=== PATIENT | male | born 1945 | race Caucasian/White ===

== ENCOUNTER 2022-12-17 05:41 | Inpatient (IN) ==
--- NOTE | 2022-12-13 11:56 | Anesthesiology Consultation ---
Date of Service December 13, 2022 Assessment & Plan (1) Encounter for pre-operative examination: - cardiology clearance 12/11/22: "...low to moderate risk..." - Per lead atg developer on 12/13/2022: No known infectious disease contacts, current infectious disease symptoms in past 10 days or COVID positive test result in the past 90 days. Chart Review Chart Review: Acceptable Risk for Surgery and Patient NOT seen in Pre Admission Testing History Surgery Operation Date: 12/17/22 08:00 Proposed Procedures p Right Femoral Popliteal Insitu Bypass - Bjorn Alamo MD s Right Foot Debridement - Bjorn Alamo MD Height/Weight Height: 5 ft 11 in Weight: 83.915 kg Allergies Allergy/AdvReac Type Severity Reaction Status Date / Time No Known Allergies Allergy Verified 12/13/22 09:04 Medications Home Medications Medication Instructions Recorded Confirmed Last Taken amlodipine 10 mg tablet 10 mg PO QAM 12/13/22 12/13/22 Unknown aspirin 81 mg tablet,delayed 81 mg PO QAM 12/13/22 12/13/22 Unknown release buspirone 10 mg tablet 10 mg PO UD 12/13/22 12/13/22 Unknown clobetasol 0.025 % topical cream 1 applic topical UD PRN ud 12/13/22 12/13/22 Unknown clopidogrel 75 mg tablet (Plavix) 75 mg PO HS 12/13/22 12/13/22 Unknown evolocumab 140 mg/mL subcutaneous 140 mg subcut UD 12/13/22 12/13/22 Unknown pen injector (Repatha Karenick) isosorbide mononitrate 30 mg 30 mg PO QAM 12/13/22 12/13/22 Unknown tablet,extended release 24 hr pantoprazole 40 mg tablet,delayed 40 mg PO QAM 12/13/22 12/13/22 Unknown release pravastatin 40 mg tablet 40 mg PO HS 12/13/22 12/13/22 Unknown Past Medical History Medical History (Updated 12/13/22 @ 11:59 by Shawnee Campbell PA-C) Anxiety CAD (coronary artery disease) s/p 1 stent 2020 Carotid artery stenosis s/p left carotid endarterectomy GERD (gastroesophageal reflux disease) History of COVID-19 05/2022>resolved History of skin cancer Hx of gastric ulcer Hyperlipidemia Hypertension Osteoarthritis PVD (peripheral vascular disease) Past Family History Family History Other No family history of adverse response to anesthesia Past Surgical History Surgical History H/O arthroscopy of right knee H/O carotid endarterectomy left H/O vascular surgery pt states has 3 stents in rt/left legs will bring all stent cards to surgery History of cataract surgery rt/left History of colonoscopy History of esophagogastroduodenoscopy (EGD) History of heart artery stent 2020>1 stent placed *GABRIELLE Layne (followed by Dr. Gary) History of tooth extraction Social History Smoking Status: Current every day smoker tobacco type: cigarettes Smoking cigarettes per day: 20 cig daily>advised Do You Dip or Chew Tobacco: No Hx Alcohol Use: No substance use type: does not use Testing Laboratory Results 12/12/2022 WBC: 9.3 H/H: 12.9/38 PLATELETS: 246 11/23/22 SODIUM: 142 POTASSIUM: 4.2 CHLORIDE: 111 CO2: 26 BUN: 32 CREATININE: 1.6 GLUCOSE: 137 PT: 9.5 PTT: 26 INR: 1 Electrocardiogram Date: 07/28/22 NSR, rate 66 bpm RBBB Septal infarct, age undetermined Cardiac Catheterization Date: 04/24/21 Left main: nonexistent, this is a dual ostia system, of the LAD and LCx have different takeoff LAD: luminal irregularities LCx: 99% stenosis, 99% ostial to proximal stenosis 99% calcific stenosis in the ostial to proximal segment of the vessel RCA: not selectively engaged or injected Percutaneous intervention of the left circumflex and the OM1
[2022-12-17] MEDS ORDERED: ceFAZolin 2000MG 2,000 MG/15 ML SYR IV SCH (06:00)
[2022-12-17] MEDS ORDERED: LACTATED RINGER'S 1,000 ML IV SCH ×2 (06:00→11:39)
[2022-12-17] MEDS ORDERED: ROCURONIUM BROMIDE 10 MG/ML 5 ML VIAL IV ONE ×4 (07:06→10:40)
[2022-12-17] MEDS ORDERED: fentaNYL citrate PF 100 MCG/2 ML VIAL ONE ×2 (07:06→10:33)
[2022-12-17] MEDS ORDERED: LIDOCAINE 2% 2 ML VIAL/AMP(20MG/ML) INFIL ONE (07:06)
[2022-12-17] MEDS ORDERED: PROPOFOL IV EMULSION 10 MG/ML 20 ML VIAL IV ONE (07:06)
[2022-12-17] MEDS ORDERED: HEPARIN (PORCINE) 1000 UNIT/ML 10 ML (CATH LAB USE ONLY) ONE (07:22)
[2022-12-17] MEDS ORDERED: PAPAVERINE HCL INJ 30 MG/ML 2 ML VIAL ONE (07:22)
[2022-12-17] MEDS ORDERED: ceFAZolin 330 MG/ML 1 GM VIAL ONE (07:23)
[2022-12-17] MEDS ORDERED: GELATIN SPONGE SZ 100 ONE (07:23)
[2022-12-17] MEDS ORDERED: THROMBIN 5000 UNITS KIT ONE (07:23)
[2022-12-17] MEDS ORDERED: THROMBIN FOR SOLN 20000 UNIT KIT ONE (07:39)
--- NOTE | 2022-12-17 07:45 | History & Physical Report ---
Date of Service December 17, 2022 History of Present Illness Primary Care Provider: Fredi Jimenez Capp, Reason for Consultation Right SFA occlusion with foot ulceration History of Present Illness I had the pleasure of seeing Aida today for evaluation of his right lower extremity. As you know he is a 77-year-old gentleman who has had coronary stents bilateral leg stents done in the past. He is now developed an ulceration on the lateral aspect of his foot over the fifth metatarsal head laterally which is healing nicely and at this point almost completely healed. He also has a punctate ulceration on the heel causing him a significant amount of discomfort. He denies any claudication in the right lower extremity at this point. Review of Systems 10 systems were reviewed. Positive findings are occasional syncopal episodes intolerance to heat and cold irregular heartbeat shortness of breath heartburn and change in a mole. Rest of the positive findings are per the HPI. Physical Exam Vitals & Measurements Input and Output - Last 24 hours (Last 8 hours) No I/O Data Found: On exam he is awake alert and oriented x3. His blood pressure is 158/72 on the left 162/78 on the right. His lungs are clear. His heart had a regular rate and rhythm. Abdominal exam is benign. There is no abnormal dilatation of the aorta. His femorals are +2 bilaterally. He does have palpable pulses in the left foot slightly decreased. There is no pulses palpated in the right foot. Capillary refill on the left is normal in the right is markedly decreased. The right lower extremity has a almost healed ulceration over the lateral aspect of the fifth metatarsal head. There also is a punctate lesion on the heel in the right foot with a small cavity underlying the skin. Neurologic exam grossly intact. Diagnostic Results Vein mapping was performed today which showed a usable saphenous vein of the right lower extremity. Assessment/Plan 1. 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 We will also debride the heel being that he will be under anesthesia for the procedure. He understands the risks options and benefits and agrees to go ahead with this procedure. We will keep you informed as to his re sults. Thank you very much for letting us participate in the care of this patient. sincerely, John Alamo MD Problem List/Past Medical History Ongoing (atherosclerosis) Medications Home amLODIPine(amLODIPine 10 mg oral tablet), 10 mg= 1 tab, PO, Daily aspirin(aspirin 81 mg oral delayed release tablet), 81 mg= 1 tab, PO, Daily busPIRone(busPIRone 10 mg oral tablet), 10 mg= 1 tab, PO, tid clopidogrel(clopidogrel 75 mg oral tablet), 75 mg= 1 tab, PO, Daily evolocumab(Repatha SureClick 140 mg/mL subcutaneous solution), 140 mg, subQ, [id number] isosorbide mononitrate(isosorbide mononitrate 30 mg oral tablet, extended release) metoprolol(Metoprolol Succinate ER 25 mg oral tablet, extended release), 25 mg= 1 tab, PO, Daily pantoprazole(pantoprazole 40 mg oral delayed release tablet), 40 mg= 1 tab, PO, Daily pravastatin(pravastatin 40 mg oral tablet), 40 mg= 1 tab, PO, qhs Allergies NKA Signature Line Electronic Signature on File Bjorn Alamo MD Author Signature Dt/Tm: 12/10/2022 03:40 PM Manager Organizational Chu Richardson [facility] [place], [address] [place], [place] [address] Result Type: .Outpt Ltr Date of Service: December 10, 2022 15:32 EDT Authorization Status: Final Subject: Consult Note Author or Import Date: MD Alamo Eugene J on December 10, 2022 15:40 EDT Verified By: MD Alamo Eugene J on December 10, 2022 15:40 EDT Encounter info: [id number], [facility], Clinic, 12/10/2022 - 12/10/2022 Allergies Allergy/AdvReac Type Severity Reaction Status Date / Time No Known Allergies Allergy Verified 12/17/22 06:14 Home Medications Medication Instructions Recorded Confirmed Type amlodipine 10 mg tablet 10 mg PO QAM 12/13/22 12/17/22 History aspirin 81 mg tablet,delayed 81 mg PO QAM 12/13/22 12/17/22 History release buspirone 10 mg tablet 10 mg PO UD 12/13/22 12/17/22 History clobetasol 0.025 % topical cream 1 applic topical UD PRN ud 12/13/22 12/17/22 History clopidogrel 75 mg tablet (Plavix) 75 mg PO HS 12/13/22 12/17/22 History evolocumab 140 mg/mL subcutaneous 140 mg subcut UD 12/13/22 12/17/22 History pen injector (Sarahi Welsh) isosorbide mononitrate 30 mg 30 mg PO QAM 12/13/22 12/17/22 History tablet,extended release 24 hr pantoprazole 40 mg tablet,delayed 40 mg PO QAM 12/13/22 12/17/22 History release pravastatin 40 mg tablet 40 mg PO HS 12/13/22 12/17/22 History metoprolol succinate 25 mg 25 mg PO DAILY 12/17/22 12/17/22 History tablet,extended release 24 hr (Toprol XL) Past Med/Surg History Medical History Anxiety CAD (coronary artery disease) s/p 1 stent 2020 Carotid artery stenosis s/p left carotid endarterectomy GERD (gastroesophageal reflux disease) History of COVID-19 05/2022>resolved History of skin cancer Hx of gastric ulcer Hyperlipidemia Hypertension Osteoarthritis PVD (peripheral vascular disease) Surgical History H/O arthroscopy of right knee H/O carotid endarterectomy left H/O vascular surgery pt states has 3 stents in rt/left legs will bring all stent cards to surgery History of cataract surgery rt/left History of colonoscopy History of esophagogastroduodenoscopy (EGD) History of heart artery stent 2020>1 stent placed * Moro (followed by Dr. Gary) History of tooth extraction Family History Other No family history of adverse response to anesthesia Social History Smoking Status: Current every day smoker Cigarettes Per Day: 20 cig daily>advised; Second Hand Exposure: No; Do You Dip or Chew Tobacco: No; Hx Alcohol Use: No Preferred Language: Norwegian Alterations Manager Required: No Beliefs That Will Affect Care: None Current Living Situation: Spouse Feels Safe at Home: Yes Safety Concerns: Feels Safe At This Time Assistive Devices: Crutches, Denture - Upper and Denture - Lower Results & Data Vital Signs (Past 12 Hours) Vital Signs Temp Pulse Resp BP Pulse Ox O2 Del Method 12/17/22 06:21 36.6 C 81 20 141/69 H 98 Room Air
--- NOTE | 2022-12-17 07:45 | History & Physical Bridge Note ---
Date of Service December 17, 2022 History & Physical Bridge Note I have examined the patient, reviewed the History & Physical and in the interval since the performance of the History & Physical I have noted the following changes of clinical significance: no changes noted
[2022-12-17] MEDS ORDERED: fentaNYL citrate PF 100 MCG/2 ML VIAL IV PRN (07:53)
[2022-12-17] MEDS ORDERED: PROMETHAZINE HCL 12.5 MG in SODIUM CHLORIDE 0.9% 50 ML IV PRN (07:53)
[2022-12-17] MEDS ORDERED: ATROPINE SULFATE 0.1 MG/ML 10ML SYR IV PRN (07:53)
[2022-12-17] MEDS ORDERED: ONDANSETRON INJ 2 MG/ML 2 ML VIAL IV PRN ×2 (07:53→11:39)
[2022-12-17] MEDS ORDERED: ePHEDrine sulfate 50 MG/ML AMP IV PRN (07:53)
[2022-12-17] MEDS ORDERED: HYDROmorphone INJ 2 MG/ML SYR/VIAL IV PRN (07:53)
[2022-12-17] MEDS ORDERED: DEXAMETHASONE SOD INJ 4 MG/ML VIAL ONE (09:33)
[2022-12-17] MEDS ORDERED: ePHEDrine sulfate 50 MG/ML AMP ONE (09:33)
[2022-12-17] MEDS ORDERED: ONDANSETRON INJ 2 MG/ML 2 ML VIAL ONE (09:33)
[2022-12-17] MEDS ORDERED: HEPARIN SOD (PORCINE) 1000 UNIT/ML ONE (09:33)
--- NOTE | 2022-12-17 10:35 | Post Operative Brief Note ---
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
[2022-12-17] MEDS ORDERED: GLYCOPYRROLATE 0.2 MG/ML VIAL ONE (10:40)
[2022-12-17] MEDS ORDERED: NEOSTIGMINE METHYLSULFATE 1 MG/ML 10ML VIAL ONE (10:40)
--- NOTE | 2022-12-17 10:54 | Operative Report ---
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 Post-Op Diagnosis: Atherosclerosis of [place] arteries of right leg with ulceration of heel and mi dfoot I identified the patient and participated in the time-out.: Yes Procedure Operation Date: 12/17/22 08:00 Actual Procedures p Right femoral endarteretomy with Bovine patch - Bjorn Alamo MD s Debridement of Right Heel - Bjorn Alamo MD Surgeon Bjorn Alamo MD Washing Machine Operator Sudhakar Monk MD Estimated Blood Loss 50 Findings See Below Small ulcer on 5th lateral metatarsal and small heel ulcer on right foot Fluids see anesthesia record Specimens right femoral artery plaque Anesthesia Type General Complications none Disposition Accompanied Patient To Recovery: Yes Disposition: Recovery Room Indications occluded right SFA stents now with small wounds of left foot Description of Procedure The patient was brought to the operating room and placed in a supine position. An A-line was placed in addition monitoring of EKG and pulse ox was also established. The patient underwent induction of general anesthesia and an ET tube was secured. The patient's entire lower abdomen and right lower extremity were sterilely prepped and draped in the usual fashion. A curvilinear incision was made in the right groin with a 10 blade. Electrocautery was utilized to obtain hemostasis of the superficial tissues and the incision was deepened using a combination of electrocautery and sharp dissection with Metzenbaum scissors down to the femoral artery. Various lymphatic and venous structures were controlled using silk ligatures. The common femoral artery, profunda artery, and superficial femoral artery were identified and 2 small branches were controlled using Vesseloops. The patient was given 7000 units of heparin and an ACT was obtained that was greater than 200 while the artery was clamped. The very proximal common femoral/distal external iliac artery was clamped, the profunda artery was also clamped, and the other branches including the occluded superficial femoral artery were controlled. An 11 blade was utilized to make an arteriotomy longitudinally in the common femoral artery near where previous closure device was located. The arteriotomy was extended using Willett scissors superiorly and distally and a large amount of plaque was identified within the lumen. A combination of Branford elevator, Willett and tonsil was utilized to remove the plaque in the common femoral and profunda. The profunda was backbleed and had very good flow. The common femoral artery had plaque that was tacked in 3 locations and once the lumen of the artery was evaluated without any embolic material the artery was patched. This was performed using a prosthetic patch along with a running 5-0 Prolene. The artery was flushed prior to completion of the patch and there was pulsatile inflow. Superior to the proximal edge of the patch there was pulsatile bleeding from the artery this was repaired using a combination of 5-0 and 6-0 Prolene's along with a pledget of the patch material. Once this area was controlled the profunda and common femoral clamps were removed and there was pulsatility in the patch and a multiphasic Doppler signal in the profunda. The posterior tibial had a biphasic signal following the patch repair. The superficial ulcer on the posterior surface of the heel was deroofed removing 2 to 3 mm of skin as well as concern for a small foreign material in the base of the wound. The wound only tracks a few millimeters into the soft tissues it does not extend to bone or tendon. Given that the wound edges of the heel had good bleeding and the wound was quite small in addition to the significant disease in the femoral and profunda arteries that was previously removed with the patch angioplasty it was elected to not perform the femoral to popliteal bypass at this time and rather see the progression of wound healing with the extensive femoral endart that was performed. Attention was returned to the right groin and the wound bed was irrigated with antibiotic irrigation as well as Gelfoam thrombin was utilized along with electrocautery to obtain hemostasis. There were no further areas of pulsatile or ooze therefore the femoral sheath and immediately adjacent soft tissues were closed using interrupted 2-0 Vicryl sutures then the rest of the subcutaneous layers were closed with interrupted 2-0 Vicryl's and the deep dermis was closed using a running 3-0 Vicryl. The skin was closed using tommy and a Karly was placed over the incision. The heel was dressed with Xeroform and gauze along with the right lateral fifth metatarsal head ulcer was also dressed with Xeroform gauze the foot was then wrapped with Kerlix. The patient left the operation room in satisfactory condition and tolerated the procedure well. All needle and sponge counts were correct at the end of the procedure. Dr. Alamo was present and scrubbed for the entire procedure. I attest to the content of the Intraoperative Record and any orders documented therein. Any exceptions are noted below.
[2022-12-17] MEDS ORDERED: busPIRone 5 MG TAB PO SCH (11:39)
[2022-12-17] MEDS ORDERED: NON-FORMULARY MEDICATION (Evolocumab [Repatha Sureclick] 140 mg/mL Pen Injector) SQ SCH (11:39)
[2022-12-17] MEDS ORDERED: oxyCODONE/ACETAMINOPHEN 5mg/325mg TAB PO PRN (11:39)
[2022-12-17] MEDS ORDERED: MoRPHine SULFATE 4 MG/ML 1 ML CARP\\VIAL IV PRN (11:39)
[2022-12-17] MEDS: ENOXAPARIN INJ 40 MG/0.4 ML SYR SQ SCH (13:04)
--- NOTE | 2022-12-17 15:06 | Anesthesiology Progress Note ---
Date of Service December 17, 2022 Anesthesia Post Procedure Vital Signs Vital Signs: Temp Pulse Pulse Resp BP BP BP 12/17/22 14:46 36.5 C 81 18 122/61 12/17/22 13:42 36.6 C 82 18 128/61 12/17/22 12:38 36.7 C 69 18 114/64 12/17/22 12:22 12/17/22 12:10 36.7 C 79 18 115/63 12/17/22 11:39 36.5 C 60 18 125/53 L 12/17/22 11:30 78 20 132/51 L 12/17/22 11:20 36.5 C 74 18 127/48 L 12/17/22 11:10 74 18 111/47 L 12/17/22 11:00 75 20 118/49 L 112/46 L 12/17/22 10:53 36.5 C 71 20 118/49 L 12/17/22 06:21 36.6 C 81 20 141/69 H Pulse Ox O2 Del Method O2 Flow Rate 12/17/22 14:46 93 Room Air 12/17/22 13:42 97 Nasal Cannula 3 12/17/22 12:38 96 Nasal Cannula 3 12/17/22 12:22 Nasal Cannula 3 12/17/22 12:10 96 Nasal Cannula 3 12/17/22 11:39 94 Nasal Cannula 3 12/17/22 11:30 94 Nasal Cannula 3 12/17/22 11:20 94 Nasal Cannula 3 12/17/22 11:10 97 Nasal Cannula 3 12/17/22 11:00 99 Oxymask 6 12/17/22 10:53 93 Oxymask 6 12/17/22 06:21 98 Room Air Transfer of Care Handoff Completed per policy Notes Mental Status: alert / awake / arousable and participated in evaluation Patient Amnestic to Procedure: Yes Nausea / Vomiting: adequately controlled Pain: adequately controlled Airway Patency, RR, SpO2: stable & adequate BP & HR: stable & adequate Hydration State: stable & adequate Anesthetic Complications: no major complications apparent
[2022-12-17] MEDS: ceFAZolin 2000MG 2,000 MG/15 ML SYR IV SCH (16:40)
[2022-12-17] MEDS ORDERED: CLOPIDOGREL BISULFATE 75 MG TAB PO SCH (21:00)
[2022-12-17] MEDS ORDERED: PRAVASTATIN SOD 40 MG TAB PO SCH (21:00)
[2022-12-18] MEDS: ENOXAPARIN INJ 40 MG/0.4 ML SYR SQ SCH ×2 (00:10→12:37)
[2022-12-18] MEDS: ceFAZolin 2000MG 2,000 MG/15 ML SYR IV SCH (00:13)
[2022-12-18 08:18] LABS: Basophils # (auto) 0.02 K/uL (0-0.2); Basophils % (auto) 0.2 %; Hematocrit (blood only) 31.7 % (42.0-52.0); Hemoglobin 10.8 g/dl (14.0-18.0); Immature Granulocytes # (auto) 0.07 K/uL (0.01-0.20); Immature Granulocytes % (auto) 0.6 %; Lymphocytes % (auto) 9.7 %; Mean Corpuscular Hemoglobin 30.1 pg (25.0-34.0); Mean Corpuscular Hgb Conc 34.1 g/dL (32.0-36.0); Mean Corpuscular Volume 88.3 fL (80.0-100.0); Mean Platelet Volume 9.7 fL (9.4-12.4); Monocytes # (auto) 1.09 K/uL (0.11-0.59); Monocytes % (auto) 8.8 %; Neutrophils # (auto) 9.98 K/uL (1.40-6.50); Neutrophils % (auto) 80.7 %; Platelet Count 196 K/uL (130-400); RDW Coefficient of Variation 14.3 % (11.5-14.5); RDW Standard Deviation 45.8 fL (36.4-46.3); Red Blood Count 3.59 M/uL (4.70-6.10); White Blood Count 12.36 K/ul (4.8-10.8)
[2022-12-18] MEDS ORDERED: ISOSORBIDE MONO EXTENDED REL 30 MG TABCR PO SCH (09:00)
[2022-12-18] MEDS ORDERED: PANTOprazole 40 MG TAB PO SCH (09:00)
[2022-12-18] MEDS ORDERED: ASPIRIN 81 MG ECTAB PO SCH (09:00)
[2022-12-18] MEDS ORDERED: amLODIPine BESYLATE 5 MG TAB PO SCH (09:00)
[2022-12-18] MEDS ORDERED: METOPROLOL SUCC 25MG EXT REL TAB PO SCH (09:00)
--- NOTE | 2022-12-18 15:53 | Surgery Progress Note ---
Date of Service December 18, 2022 Assessment & Plan (1) Peripheral arterial disease: Plan: Pt now POD #1 after R common fem endart and foot debridement. Pt states he would like to go home. Stable for d/c. Pt denies need for pain medication. Will see in office in 2 weeks. Admission and Anticipated Discharge Date Admission Date: December 17, 2022 Subjective 77 yo m POD #1 after R common femoral and profunda endarterectomy with bovine patch,and debridement of R heel, seen in f/u today. Pt states feeling well. Mild discomfort in R groin. No new foot or toe pain. Denies N/V, chest pain, SOB, other complaints. Review of Systems Review of Systems: All systems reviewed & are unremarkable except as noted in HPI & below Physical Exam Constitutional: WD/WN, vitals as above cooperative and comfortable; not in distress Neck: trachea midline Respiratory: normal respiratory effort, lungs clear to auscultation Auscultation: + diminished lung sounds Cardiovascular: Rate/Rhythm: regular rate and regular rhythm Vessels: posterior tibial pulses present (dopplerable) and dorsalis pedis pulses present (dopplerable); + abnormal peripheral pulses Extremities: normal capillary refill; no edema Gastrointestinal (Abdomen): Inspection/Auscultation: abdomen normal to inspection and normal bowel sounds Percussion/Palpation: abdomen soft; abdomen nontender Musculoskeletal: no cyanosis or clubbing, extremities motor strength 5/5 Skin: no rashes, warm and dry + wound (R heel wound and lateral foot ulcer.) and + incision (R groin prevena intact) Neurologic: moves all extremities and awake; no focal motor deficits and not confused Psychiatric: A+Ox3, euthymic affect Results & Data Vital Signs (Past 12 Hours) Vital Signs Temp Pulse Resp BP BP Pulse Ox O2 Del Method 12/18/22 12:53 36.7 C 65 18 143/66 H 132/51 L 95 12/18/22 07:09 36.7 C 65 18 143/66 H 95 Room Air 12/18/22 06:08 36.7 C 62 18 138/60 94 Room Air
--- NOTE | 2022-12-18 15:54 | Discharge Summary ---
Date of Service December 18, 2022 Admission HPI Per Admitting Provider Reason for Consultation Right SFA occlusion with foot ulceration History of Present Illness I had the pleasure of seeing Aida today for evaluation of his right lower extremity. As you know he is a 77-year-old gentleman who has had coronary stents bilateral leg stents done in the past. He is now developed an ulceration on the lateral aspect of his foot over the fifth metatarsal head laterally which is healing nicely and at this point almost completely healed. He also has a punctate ulceration on the heel causing him a significant amount of discomfort. He denies any claudication in the right lower extremity at this point. Review of Systems 10 systems were reviewed. Positive findings are occasional syncopal episodes intolerance to heat and cold irregular heartbeat shortness of breath heartburn and change in a mole. Rest of the positive findings are per the HPI. Physical Exam Vitals & Measurements Input and Output - Last 24 hours (Last 8 hours) No I/O Data Found: On exam he is awake alert and oriented x3. His blood pressure is 158/72 on the left 162/78 on the right. His lungs are clear. His heart had a regular rate and rhythm. Abdominal exam is benign. There is no abnormal dilatation of the aorta. His femorals are +2 bilaterally. He does have palpable pulses in the left foot slightly decreased. There is no pulses palpated in the right foot. Capillary refill on the left is normal in the right is markedly decreased. The right lower extremity has a almost healed ulceration over the lateral aspect of the fifth metatarsal head. There also is a punctate lesion on the heel in the right foot with a small cavity underlying the skin. Neurologic exam grossly intact. Diagnostic Results Vein mapping was performed today which showed a usable saphenous vein of the right lower extremity. Assessment/Plan 1. 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 We will also debride the heel being that he will be under anesthesia for the procedure. He understands the risks options and benefits and agrees to go ahead with this procedure. We will keep you informed as to his results. Thank you very much for letting us participate in the care of this patient. sincerely, John Alamo MD Problem List/Past Medical History Ongoing (atherosclerosis) Medications Home amLODIPine(amLODIPine 10 mg oral tablet), 10 mg= 1 tab, PO, Daily aspirin(aspirin 81 mg oral delayed release tablet), 81 mg= 1 tab, PO, Daily busPIRone(busPIRone 10 mg oral tablet), 10 mg= 1 tab, PO, tid clopidogrel(clopidogrel 75 mg oral tablet), 75 mg= 1 tab, PO, Daily evolocumab(Repatha SureClick 140 mg/mL subcutaneous solution), 140 mg, subQ, [id number] isosorbide mononitrate(isosorbide mononitrate 30 mg oral tablet, extended release) metoprolol(Metoprolol Succinate ER 25 mg oral tablet, extended release), 25 mg= 1 tab, PO, Daily pantoprazole(pantoprazole 40 mg oral delayed release tablet), 40 mg= 1 tab, PO, Daily pravastatin(pravastatin 40 mg oral tablet), 40 mg= 1 tab, PO, qhs Allergies NKA Signature Line Electronic Signature on File Bjorn Alamo MD Author Signature Dt/Tm: 12/10/2022 03:40 PM Procurement Professional Chu Richardson [facility] [address], [address] [place], [place] [address], [facility] Result Type: .Outpt Ltr Date of Service: December 10, 2022 15:32 EDT Authorization Status: Final Subject: Consult Note Author or Import Date: MD Alamo Eugene J on December 10, 2022 15:40 EDT Verified By: MD Alamo Eugene J on December 10, 2022 15:40 EDT Encounter info: [id number], [place] [id number], Clinic, 12/10/2022 - 12/10/2022 Admission Exam Per Admitting Provider On exam he is awake alert and oriented x3. His blood pressure is 158/72 on the left 162/78 on the right. His lungs are clear. His heart had a regular rate and rhythm. Abdominal exam is benign. There is no abnormal dilatation of the aorta. His femorals are +2 bilaterally. He does have palpable pulses in the left foot slightly decreased. There is no pulses palpated in the right foot. Capillary refill on the left is normal in the right is markedly decreased. The right lower extremity has a almost healed ulceration over the lateral aspect of the fifth metatarsal head. There also is a punctate lesion on the heel in the right foot with a small cavity underlying the skin. Neurologic exam grossly intact. Principal Diagnosis 1. s/p R common femoral and profunda endarterectomy with bovine patch, R heel debridement 2. Severe RLE PAD with ulcer Discharge Exam Constitutional WD/WN, vitals as above cooperative and comfortable; not in distress Neck trachea midline Respiratory normal respiratory effort, lungs clear to auscultation Auscultation: + diminished lung sounds Cardiovascular Rate/Rhythm: regular rate and regular rhythm Vessels: posterior tibial pulses present (dopplerable) and dorsalis pedis pulses present (dopplerable); + abnormal peripheral pulses Extremities: normal capillary refill; no edema Gastrointestinal (Abdomen) Inspection/Auscultation: abdomen normal to inspection and normal bowel sounds Percussion/Palpation: abdomen soft; abdomen nontender Musculoskeletal no cyanosis or clubbing, extremities motor strength 5/5 Skin no rashes, warm and dry + wound (R heel wound and lateral foot ulcer.) and + incision (R groin prevena intact) Neurologic moves all extremities and awake; no focal motor deficits and not confused Psychiatric A+Ox3, euthymic affect Discharge Data Allergies Allergy/AdvReac Type Severity Reaction Status Date / Time No Known Allergies Allergy Verified 12/17/22 06:14 Procedures Performed Operation Date: 12/17/22 08:00 Actual Procedures p Right femoral endarteretomy with Bovine patch - Bjorn Alamo MD s Debridement of Right Heel - Bjorn Alamo MD Hospital Course (1) Peripheral arterial disease: Pt now POD #1 after R common fem endart and foot debridement. Pt states he would like to go home. Stable for d/c. Pt denies need for pain medication. Will see in office in 2 weeks. Total Time Total Time Spent Total Time Spent (In Minutes): 0 Discharge Plan Discharge Items Patient Disposition: Home - Self-Care Reason For Visit: Right Superior Femoral Artery Occlusion,Ulceration Discharge Diagnosis: 1. s/p Right Common Femoral and Profunda Endarterectomy with bovine patch, debridement of Right heel 2. Severe PAD with RLE ulcer Condition on Discharge: Good Activity: Per Instructions section Non-emergency contact: Primary Care Provider and Surgeon Call non-emergency contact if: you have any medication questions, your pain is not controlled, your pain is concerning for you, you have a fever, your wound has increased redness and your wound has increased drainage Follow-up/Referrals: Bjorn Alamo MD [Physician] - 01/03/23 1:00 pm (Follow up with Dr Alamo or Li Peters PA-C in 2 weeks.) Fredi Rogers, DO [Primary Care Provider] - (Follow up with PCP within 2 weeks) Diet: Heart Healthy Addtl Attending Provider Instructions: ACTIVITY RECOMMENDATIONS: 1. Change dressing to R foot daily. Use dry gauze and wrap. Wear post op boot/shoe when ambulating. 2. May shower, no bathing. 3. Right groin has Prevena Incisional Vac in place. This is a disposable device. When the battery dies and the purple foam puffs up, remove the entire device and throw away. Call office if you have any questions. [phone] SPECIAL CARE INSTRUCTIONS: Call your doctor if: * Temperature above 101 degrees * Pain not relieved by pain medicine ordered * There is increased drainage or redness from any incision * You have any unanswered questions or concerns. Pending Studies at Discharge: No Stand-Alone Forms: My [employer], Smoking Cessation Medications and DC Order Prescriptions: Continued pravastatin 40 mg Tablet 40 mg PO HS isosorbide mononitrate 30 mg Tablet Extended Release 24 Hr 30 mg PO QAM clopidogrel [Plavix] 75 mg Tablet 75 mg PO HS Patient Comments: has holding instructions aspirin 81 mg Tablet,Delayed Release (Dr/Ec) 81 mg PO QAM amlodipine 10 mg Tablet 10 mg PO QAM buspirone 10 mg Tablet 10 mg PO UD Patient Comments: 10mg qam/5mg qpm clobetasol 0.025 % Cream 1 applic TOPICAL UD PRN (Reason: ud) Repatha SureClick 140 mg/mL Pen Injector 140 mg SUBCUT UD Patient Comments: q2 weeks pantoprazole 40 mg Tablet,Delayed Release (Dr/Ec) 40 mg PO QAM metoprolol succinate [Toprol XL] 25 mg Tablet Extended Release 24 Hr 25 mg PO DAILY Discharge Orders: Discharge Order (Routine); Ordered 12/18/22 Ordered By: Li Sosa/Other Patient Handouts: Femoral Endarterectomy Dc, Endarterectomy Femoral Admission Data Admit Date/Time: 12/17/22 07:45 Attending Provider: Bjorn Alamo Admit Provider: Bjorn Alamo Primary Care Provider: Fredi Rogers Other Interventions: Discharge Summary Assessment (RN) Last Done: 12/18/22 12:53
== END 2022-12-18 13:45 | disposition home or self-care (01) | DRG 254 ==
LOC: ASU 05:41 → 3W 07:45
DX: Z86.16 Personal history of COVID-19; F17.210 Nicotine dependence, cigarettes, uncomplicated; I70.235 Atherosclerosis of native arteries of right leg with ulceration of other part of foot; K21.9 Gastro-esophageal reflux disease without esophagitis; I25.10 Atherosclerotic heart disease of native coronary artery without angina pectoris; Z95.5 Presence of coronary angioplasty implant and graft; Z95.828 Presence of other vascular implants and grafts; L97.411 Non-pressure chronic ulcer of right heel and midfoot limited to breakdown of skin